=== PATIENT | female | born 1975 | race Caucasian/White ===

== ENCOUNTER 2018-01-12 21:13 | Inpatient (IN) | payer OTHER ==
[2018-01-13] MEDS ORDERED: NACL 0.9% 3 ML SYG IV
[2018-01-13] MEDS: DEXTROSE 5%-0.45% NACL 1,000 ML IV ×3 (01:21→19:59)
[2018-01-13] MEDS: AZTREONAM 1 GM/NS (PMX) 50 ML IVPB ×3 (01:21→20:41)
[2018-01-13] MEDS: ONDANSETRON 4 MG INJ IV ×3 (02:54→20:44)
[2018-01-13] MEDS: morphine 2 MG INJ IV ×2 (02:55→08:49)
[2018-01-13] MEDS: FAMOTIDINE 20 MG INJ IV ×2 (08:50→20:41)
[2018-01-13] MEDS: ACETAMINOPHEN 325 MG TAB PO ×2 (10:09→20:40)
[2018-01-13] MEDS: HYDROmorphONE 1 MG/ML SYG IV ×3 (11:22→19:44)
[2018-01-13 13:11] LABS: ADD MAN DIFF? NO
[2018-01-13 13:13] LABS: BASOPHILS % 0.2 % (0.0-2.0); EOSINOPHILS # 0.1 10^3/ul (0.0-0.5); EOSINOPHILS % 0.9 % (0.0-7.0); HEMATOCRIT 39.6 % (37.0-47.0); LYMPHOCYTES % 6.4 % (15.0-51.0); MEAN CORPUSCULAR HEMOGLOBIN 30.5 pg (29.0-33.0); MEAN CORPUSCULAR HGB CONC 32.8 g/dl (32.0-37.0); MEAN PLATELET VOLUME 10.7 fl (7.4-10.4); MONOCYTE # 1.2 10^3/ul (0.3-0.9); MONOCYTES % 7.2 % (0.0-11.0); NEUTROPHIL # 13.6 10^3/ul (1.6-7.5); NEUTROPHILS % 84.9 % (39.0-77.0); PLATELET COUNT 302 10^3/UL (140-415); RED BLOOD COUNT 4.26 10^6/ul (4.20-5.40); RED CELL DISTRIBUTION WIDTH 12.8 % (11.5-14.5)
[2018-01-13 13:35] LABS: ALANINE AMINOTRANSFERASE 67 IU/L (13-69); ALBUMIN 3.5 g/dl (3.3-4.9); ALBUMIN/GLOBULIN RATIO 1.09; ALKALINE PHOSPHATASE 73 IU/L (42-121); ANION GAP 7 (5-13); ASPARTATE AMINO TRANSFERASE 39 IU/L (15-46); BILIRUBIN,INDIRECT 0.7 mg/dl (0-1.1); BILIRUBIN,TOTAL 0.7 mg/dl (0.2-1.3); BLOOD UREA NITROGEN 12 mg/dl (7-20); CALCIUM 8.7 mg/dl (8.4-10.2); CARBON DIOXIDE 27 mmol/L (21-31); CHLORIDE 102 mmol/L (97-110); CREATININE 0.78 mg/dl (0.44-1.00); Estimated GFR > 60 mL/min (>60); GLUCOSE 120 mg/dl (70-220); LIPASE 156 U/L (23-300); POTASSIUM 4.6 mmol/L (3.5-5.1); SODIUM 136 mmol/L (135-144); TOTAL PROTEIN 6.7 g/dl (6.1-8.1)
[2018-01-14] MEDS: HYDROmorphONE 1 MG/ML SYG IV ×5 (00:25→20:38)
[2018-01-14] MEDS: DEXTROSE 5%-0.45% NACL 1,000 ML IV ×4 (00:56→15:59)
[2018-01-14 05:29] LABS: ADD MAN DIFF? NO
[2018-01-14 05:33] LABS: ABNORMAL IP MESSAGE 1; BASOPHIL # 0.1 10^3/ul (0.0-0.1); BASOPHILS % 0.3 % (0.0-2.0); EOSINOPHILS # 0.1 10^3/ul (0.0-0.5); EOSINOPHILS % 0.7 % (0.0-7.0); HEMATOCRIT 40.1 % (37.0-47.0); HEMOGLOBIN 12.8 g/dl (12.0-16.0); LYMPHOCYTES # 1.6 10^3/ul (0.8-2.9); LYMPHOCYTES % 8.1 % (15.0-51.0); MEAN CORPUSCULAR HEMOGLOBIN 29.9 pg (29.0-33.0); MEAN CORPUSCULAR HGB CONC 31.9 g/dl (32.0-37.0); MEAN CORPUSCULAR VOLUME 93.7 fl (82.0-101.0); MEAN PLATELET VOLUME 10.2 fl (7.4-10.4); MONOCYTE # 1.6 10^3/ul (0.3-0.9); MONOCYTES % 8.6 % (0.0-11.0); NEUTROPHIL # 15.7 10^3/ul (1.6-7.5); NEUTROPHILS % 81.6 % (39.0-77.0); PLATELET COUNT 294 10^3/UL (140-415); RED BLOOD COUNT 4.28 10^6/ul (4.20-5.40); RED CELL DISTRIBUTION WIDTH 12.8 % (11.5-14.5)
[2018-01-14 05:33] LABS: WHITE BLOOD COUNT 19.2 10^3/ul (4.8-10.8)
[2018-01-14 05:50] LABS: POSITIVE DIFF @See below
[2018-01-14] MEDS: FAMOTIDINE 20 MG INJ IV ×2 (09:14→20:34)
[2018-01-14] MEDS: AZTREONAM 1 GM/NS (PMX) 50 ML IVPB (09:14)
[2018-01-14] MEDS: ACETAMINOPHEN 325 MG TAB PO ×2 (09:14→22:24)
[2018-01-14] MEDS: ONDANSETRON 4 MG INJ IV ×2 (09:15→20:38)
[2018-01-14] MEDS: CEFEPIME 2GM/50 ML (PMX) 50 ML IVPB ×2 (13:25→20:34)
[2018-01-14] MEDS: metroNIDAZOLE 500 MG/NS (PMX) 100 ML IVPB ×2 (14:55→22:25)
[2018-01-15] MEDS: DEXTROSE 5%-0.45% NACL 1,000 ML IV ×2 (00:43→14:59)
[2018-01-15] MEDS: HYDROmorphONE 1 MG/ML SYG IV ×5 (01:31→21:59)
[2018-01-15] MEDS: metroNIDAZOLE 500 MG/NS (PMX) 100 ML IVPB ×3 (05:11→22:33)
[2018-01-15 05:31] LABS: ADD MAN DIFF? NO
[2018-01-15 05:37] LABS: WHITE BLOOD COUNT 18.1 10^3/ul (4.8-10.8)
[2018-01-15 05:37] LABS: ABNORMAL IP MESSAGE 1; BASOPHIL # 0.1 10^3/ul (0.0-0.1); BASOPHILS % 0.3 % (0.0-2.0); EOSINOPHILS # 0.3 10^3/ul (0.0-0.5); EOSINOPHILS % 1.6 % (0.0-7.0); HEMATOCRIT 35.5 % (37.0-47.0); HEMOGLOBIN 11.5 g/dl (12.0-16.0); LYMPHOCYTES # 1.7 10^3/ul (0.8-2.9); LYMPHOCYTES % 9.2 % (15.0-51.0); MEAN CORPUSCULAR HEMOGLOBIN 30.3 pg (29.0-33.0); MEAN CORPUSCULAR HGB CONC 32.4 g/dl (32.0-37.0); MEAN CORPUSCULAR VOLUME 93.4 fl (82.0-101.0); MEAN PLATELET VOLUME 10.7 fl (7.4-10.4); MONOCYTE # 1.7 10^3/ul (0.3-0.9); MONOCYTES % 9.5 % (0.0-11.0); NEUTROPHIL # 14.2 10^3/ul (1.6-7.5); NEUTROPHILS % 78.6 % (39.0-77.0); PLATELET COUNT 253 10^3/UL (140-415); RED CELL DISTRIBUTION WIDTH 12.8 % (11.5-14.5)
[2018-01-15 05:44] LABS: POSITIVE DIFF @See below
[2018-01-15 06:28] LABS: ANION GAP 5 (5-13); BLOOD UREA NITROGEN 8 mg/dl (7-20); CALCIUM 8.6 mg/dl (8.4-10.2); CARBON DIOXIDE 27 mmol/L (21-31); CHLORIDE 105 mmol/L (97-110); CREATININE 0.77 mg/dl (0.44-1.00); Estimated GFR > 60 mL/min (>60); GLUCOSE 97 mg/dl (70-220); POTASSIUM 3.8 mmol/L (3.5-5.1); SODIUM 137 mmol/L (135-144)
[2018-01-15] MEDS: ONDANSETRON 4 MG INJ IV ×2 (08:10→13:00)
[2018-01-15] MEDS: FAMOTIDINE 20 MG INJ IV ×2 (08:15→21:50)
[2018-01-15] MEDS: CEFEPIME 2GM/50 ML (PMX) 50 ML IVPB ×2 (08:26→21:51)
[2018-01-15] MEDS: ACETAMINOPHEN 1000MG/100ML IV 100 ML IVPB (09:05)
[2018-01-15] MEDS ORDERED: SUCCINYLCHOLINE CHLORIDE 100 MG/5 ML SYG IV (10:03)
[2018-01-15] MEDS ORDERED: ROCURONIUM 50 MG INJ (10:03)
[2018-01-15] MEDS ORDERED: LIDOCAINE 2% (SDV) 5 ML INJ (10:03)
[2018-01-15] MEDS ORDERED: PROPOFOL 20 ML (10:03)
[2018-01-15] MEDS ORDERED: FENTAnyl 50 MCG/ML VIAL ×2 (10:03→11:49)
[2018-01-15] MEDS ORDERED: ROPIVACAINE 0.5 % 30 ML VIAL (10:04)
[2018-01-15] MEDS ORDERED: MIDAZOLAM 1 MG/ML 2 ML INJ (10:04)
[2018-01-15] MEDS ORDERED: FENTAnyl 50 MCG/ML VIAL IV ×2 (10:30)
[2018-01-15] MEDS ORDERED: HYDROmorphONE 1 MG/5 ML IV SYRINGE IV ×3 (10:30)
[2018-01-15] MEDS ORDERED: DIPHENHYDRAMINE 50 MG INJ IV (10:30)
[2018-01-15] MEDS ORDERED: MEPERIDINE 25 MG INJ IV (10:30)
[2018-01-15] MEDS ORDERED: PROCHLORPERAZINE 10 MG INJ IV (10:30)
[2018-01-15] MEDS ORDERED: PHENYLephrine (100 MCG/ML) 5ML SYG (11:09)
[2018-01-15] MEDS ORDERED: ONDANSETRON 4 MG INJ (11:22)
[2018-01-15] MEDS ORDERED: DEXAMETHASONE 4 MG/ML 1 ML INJ (11:22)
[2018-01-15] MEDS: LIDOCAINE 1% (STERILE-PAK) 30 ML INJ (11:25)
[2018-01-15] MEDS: BUPIVACAINE 0.25%/EPI (SDV) 10 ML INJ (11:25)
[2018-01-15] MEDS ORDERED: NEOSTIGMINE 3 MG/3 ML SYRINGE (12:13)
[2018-01-15] MEDS ORDERED: GLYCOPYRROLATE 0.4 MG INJ (12:13)
[2018-01-15] MEDS ORDERED: KETOROLAC 30 MG INJ (12:14)
[2018-01-15] MEDS: FENTAnyl 50 MCG/ML VIAL IV (13:01)
[2018-01-16] MEDS: LORAZEPAM 2 MG INJ IV (00:08)
[2018-01-16] MEDS: HYDROmorphONE 1 MG/ML SYG IV ×5 (02:57→19:35)
[2018-01-16] MEDS: DEXTROSE 5%-0.45% NACL 1,000 ML IV ×2 (02:57→07:59)
[2018-01-16] MEDS: metroNIDAZOLE 500 MG/NS (PMX) 100 ML IVPB ×3 (05:31→22:48)
[2018-01-16 05:32] LABS: ADD MAN DIFF? NO
[2018-01-16 05:37] LABS: WHITE BLOOD COUNT 19.8 10^3/ul (4.8-10.8)
[2018-01-16 05:37] LABS: BASOPHILS % 0.2 % (0.0-2.0); EOSINOPHILS % 0.1 % (0.0-7.0); HEMATOCRIT 33.3 % (37.0-47.0); HEMOGLOBIN 10.8 g/dl (12.0-16.0); LYMPHOCYTES # 0.8 10^3/ul (0.8-2.9); LYMPHOCYTES % 4.1 % (15.0-51.0); MEAN CORPUSCULAR HEMOGLOBIN 30.3 pg (29.0-33.0); MEAN CORPUSCULAR HGB CONC 32.4 g/dl (32.0-37.0); MEAN CORPUSCULAR VOLUME 93.3 fl (82.0-101.0); MEAN PLATELET VOLUME 10.5 fl (7.4-10.4); MONOCYTE # 1.2 10^3/ul (0.3-0.9); MONOCYTES % 6.3 % (0.0-11.0); NEUTROPHIL # 17.4 10^3/ul (1.6-7.5); NEUTROPHILS % 88.1 % (39.0-77.0); PLATELET COUNT 287 10^3/UL (140-415); RED BLOOD COUNT 3.57 10^6/ul (4.20-5.40); RED CELL DISTRIBUTION WIDTH 12.6 % (11.5-14.5)
[2018-01-16 06:15] LABS: ALANINE AMINOTRANSFERASE 45 IU/L (13-69); ALBUMIN 2.9 g/dl (3.3-4.9); ALBUMIN/GLOBULIN RATIO 0.93; ALKALINE PHOSPHATASE 102 IU/L (42-121); ANION GAP 9 (5-13); ASPARTATE AMINO TRANSFERASE 25 IU/L (15-46); BILIRUBIN,INDIRECT 0.2 mg/dl (0-1.1); BILIRUBIN,TOTAL 0.2 mg/dl (0.2-1.3); BLOOD UREA NITROGEN 14 mg/dl (7-20); CALCIUM 8.7 mg/dl (8.4-10.2); CARBON DIOXIDE 23 mmol/L (21-31); CHLORIDE 108 mmol/L (97-110); CREATININE 0.72 mg/dl (0.44-1.00); Estimated GFR > 60 mL/min (>60); GLUCOSE 158 mg/dl (70-220); POTASSIUM 3.7 mmol/L (3.5-5.1); SODIUM 140 mmol/L (135-144)
[2018-01-16 06:20] LABS: MAGNESIUM 2.1 mg/dl (1.7-2.5)
[2018-01-16] MEDS: CEFEPIME 2GM/50 ML (PMX) 50 ML IVPB ×2 (08:23→20:26)
[2018-01-16] MEDS: FAMOTIDINE 20 MG INJ IV ×2 (08:23→20:26)
[2018-01-16] MEDS: HYDROCODONE/APAP (5/325) TAB PO ×2 (13:08→17:32)
[2018-01-16] MEDS: DOCUSATE SODIUM 100 MG CAP PO ×2 (13:09→20:26)
[2018-01-16] MEDS: SENNA TAB PO ×2 (13:09→20:26)
[2018-01-16] MEDS: ONDANSETRON 4 MG INJ IV (15:09)
[2018-01-17] MEDS: HYDROmorphONE 1 MG/ML SYG IV ×5 (00:37→21:35)
[2018-01-17] MEDS: HYDROCODONE/APAP (5/325) TAB PO ×2 (03:29→19:06)
[2018-01-17 05:23] LABS: ADD MAN DIFF? NO
[2018-01-17] MEDS: metroNIDAZOLE 500 MG/NS (PMX) 100 ML IVPB ×3 (05:41→22:23)
[2018-01-17 05:42] LABS: BASOPHIL # 0.1 10^3/ul (0.0-0.1); BASOPHILS % 0.5 % (0.0-2.0); EOSINOPHILS # 0.3 10^3/ul (0.0-0.5); EOSINOPHILS % 3.2 % (0.0-7.0); HEMATOCRIT 32.8 % (37.0-47.0); HEMOGLOBIN 10.5 g/dl (12.0-16.0); LYMPHOCYTES # 2.3 10^3/ul (0.8-2.9); LYMPHOCYTES % 24.2 % (15.0-51.0); MEAN CORPUSCULAR HEMOGLOBIN 29.9 pg (29.0-33.0); MEAN CORPUSCULAR VOLUME 93.4 fl (82.0-101.0); MEAN PLATELET VOLUME 10.2 fl (7.4-10.4); MONOCYTE # 0.8 10^3/ul (0.3-0.9); MONOCYTES % 8.3 % (0.0-11.0); NEUTROPHIL # 5.9 10^3/ul (1.6-7.5); NEUTROPHILS % 63.1 % (39.0-77.0); PLATELET COUNT 300 10^3/UL (140-415); RED BLOOD COUNT 3.51 10^6/ul (4.20-5.40)
[2018-01-17 05:42] LABS: WHITE BLOOD COUNT 9.4 10^3/ul (4.8-10.8)
[2018-01-17 05:44] LABS: INR 1.08; PROTIME 14.1 Sec (11.9-14.9); PT RATIO 1.1
[2018-01-17 05:45] LABS: PARTIAL THROMBOPLASTIN TIME 31.5 Sec (23.0-35.0)
[2018-01-17 06:10] LABS: ANION GAP 7 (5-13); BLOOD UREA NITROGEN 16 mg/dl (7-20); CALCIUM 8.5 mg/dl (8.4-10.2); CARBON DIOXIDE 25 mmol/L (21-31); CHLORIDE 106 mmol/L (97-110); CREATININE 0.69 mg/dl (0.44-1.00); Estimated GFR > 60 mL/min (>60); GLUCOSE 100 mg/dl (70-220); POTASSIUM 3.5 mmol/L (3.5-5.1); SODIUM 138 mmol/L (135-144)
[2018-01-17] MEDS: FAMOTIDINE 20 MG INJ IV ×2 (09:25→21:24)
[2018-01-17] MEDS: CEFEPIME 2GM/50 ML (PMX) 50 ML IVPB ×2 (09:25→21:24)
[2018-01-17] MEDS: SENNA TAB PO ×2 (09:27→21:24)
[2018-01-17] MEDS: DOCUSATE SODIUM 100 MG CAP PO ×2 (09:27→21:24)
[2018-01-17] MEDS: POLYETHYLENE GLYCOL 17 GM PACKET PO (13:18)
[2018-01-17] MEDS: MAGNESIUM HYDROXIDE 30ML CUP PO (13:18)
[2018-01-17] MEDS: IBUPROFEN 600 MG TAB PO (13:53)
[2018-01-18] MEDS: HYDROmorphONE 1 MG/ML SYG IV (02:35)
[2018-01-18] MEDS: ONDANSETRON 4 MG INJ IV (05:00)
[2018-01-18 05:01] LABS: ADD MAN DIFF? NO
[2018-01-18 05:09] LABS: BASOPHILS % 0.5 % (0.0-2.0); EOSINOPHILS # 0.2 10^3/ul (0.0-0.5); EOSINOPHILS % 3.2 % (0.0-7.0); HEMATOCRIT 36.9 % (37.0-47.0); HEMOGLOBIN 11.9 g/dl (12.0-16.0); LYMPHOCYTES # 1.1 10^3/ul (0.8-2.9); LYMPHOCYTES % 14.5 % (15.0-51.0); MEAN CORPUSCULAR HEMOGLOBIN 30.1 pg (29.0-33.0); MEAN CORPUSCULAR HGB CONC 32.2 g/dl (32.0-37.0); MEAN CORPUSCULAR VOLUME 93.2 fl (82.0-101.0); MEAN PLATELET VOLUME 10.2 fl (7.4-10.4); MONOCYTE # 0.6 10^3/ul (0.3-0.9); NEUTROPHIL # 5.6 10^3/ul (1.6-7.5); PLATELET COUNT 305 10^3/UL (140-415); RED BLOOD COUNT 3.96 10^6/ul (4.20-5.40); RED CELL DISTRIBUTION WIDTH 12.8 % (11.5-14.5)
[2018-01-18 05:09] LABS: WHITE BLOOD COUNT 7.6 10^3/ul (4.8-10.8)
[2018-01-18] MEDS: metroNIDAZOLE 500 MG/NS (PMX) 100 ML IVPB ×2 (05:56→14:59)
[2018-01-18] MEDS: POLYETHYLENE GLYCOL 17 GM PACKET PO (09:02)
[2018-01-18] MEDS: DOCUSATE SODIUM 100 MG CAP PO (09:02)
[2018-01-18] MEDS: HYDROCODONE/APAP (5/325) TAB PO (09:02)
[2018-01-18] MEDS: FAMOTIDINE 20 MG INJ IV (09:03)
[2018-01-18] MEDS: SENNA TAB PO (09:03)
[2018-01-18] MEDS: CEFEPIME 2GM/50 ML (PMX) 50 ML IVPB (09:08)
[2018-01-18] MEDS: IBUPROFEN 600 MG TAB PO (14:59)
== END 2018-01-18 21:43 | disposition home health service (06) | DRG 854 ==
LOC: MS1 01-16 16:55
PROC: 0FT44ZZ Resection of Gallbladder, Percutaneous Endoscopic Approach (ICD-10-PCS; principal; 2018-01-15 10:00)
PROC: 0WQF4ZZ Repair Abdominal Wall, Percutaneous Endoscopic Approach (ICD-10-PCS; 2018-01-15 10:00)
PROC: 0FB04ZX Excision of Liver, Percutaneous Endoscopic Approach, Diagnostic (ICD-10-PCS; 2018-01-15 10:00)
DX: A41.9 Sepsis, unspecified organism (principal); K80.00 Calculus of gallbladder with acute cholecystitis without obstruction; K43.9 Ventral hernia without obstruction or gangrene; K76.9 Liver disease, unspecified; J45.909 Unspecified asthma, uncomplicated; K59.00 Constipation, unspecified; E66.9 Obesity, unspecified; Z68.32 Body mass index [BMI] 32.0-32.9, adult; Z71.3 Dietary counseling and surveillance; Z87.891 Personal history of nicotine dependence; Z87.442 Personal history of urinary calculi; Z88.0 Allergy status to penicillin; Z88.2 Allergy status to sulfonamides
CPT/HCPCS: 76705; 78226; 80048; 80053; 83690; 83735; 85025; 85610; 85730; 88304; 88307; 88313